=== PATIENT | male | born 1965 | race Native Hawaiian/Other Pacific Islander ===

== ENCOUNTER 2019-01-20 08:49 | Outpatient (CLI) | payer OTHER | END 2019-01-20 22:58 | disposition home or self-care (01) | LOC: RAD 08:49 | DX: M13.88 Other specified arthritis, other site (principal); M41.80 Other forms of scoliosis, site unspecified; M50.20 Other cervical disc displacement, unspecified cervical region; I85.00 Esophageal varices without bleeding; I10 Essential (primary) hypertension; E78.00 Pure hypercholesterolemia, unspecified; R04.2 Hemoptysis; Z98.890 Other specified postprocedural states ==

== ENCOUNTER 2020-06-23 10:15 | Outpatient (CLI) | payer OTHER | END 2020-06-23 20:59 | disposition home or self-care (01) | LOC: RESP 10:15 | PROVIDERS: ATTEND Family Medicine | DX: G89.4 Chronic pain syndrome (principal); I10 Essential (primary) hypertension; E78.00 Pure hypercholesterolemia, unspecified | CPT/HCPCS: 93005 ==

== ENCOUNTER 2020-09-05 08:24 | Outpatient (CLI) | payer OTHER | END 2020-09-05 18:56 | disposition home or self-care (01) | LOC: RAD 08:24 | PROVIDERS: ATTEND Family Medicine | DX: R04.2 Hemoptysis (principal); J02.9 Acute pharyngitis, unspecified; G89.4 Chronic pain syndrome ==